=== PATIENT | female | born 1975 | race Caucasian/White ===

== ENCOUNTER → 2023-09-02 06:31 | Day surgery (SDC) | payer OTHER, SELFPAY | LOC: GI 06:31 | PROVIDERS: ATTENDING PHYSICIAN Internal Medicine Gastroenterology | DX: Z12.11 Encounter for screening for malignant neoplasm of colon (principal); K62.1 Rectal polyp | CPT/HCPCS: 45385; 45380; 88305 ==

== ENCOUNTER → 2024-01-03 07:57 | Outpatient (REF) | payer OTHER, SELFPAY | LOC: WDC 07:57 | PROVIDERS: ATTENDING PHYSICIAN Nurse Practitioner Family; FAMILY PHYSICIAN Physician Assistant Medical | DX: Z12.31 Encounter for screening mammogram for malignant neoplasm of breast (principal) | CPT/HCPCS: 77063; 77067 ==

== ENCOUNTER 2024-10-08 13:46 | Inpatient (IN) | payer OTHER, SELFPAY ==
[2024-10-08] VITALS (9 sets, daily range): BP systolic 112–128; BP diastolic 69–77; BMI 32.5; BMI 32.9
[2024-10-08 02:05] LABS: HCG, Serum Qualitative Screen Negative
[2024-10-08 02:06] LABS: Hematocrit 37.5 % (37.0-47.0); Hemoglobin 13.2 g/dL (12.0-16.0); Mean Corp Hgb Conc. 35.2 g/dL (33.0-37.0); Mean Corpuscular Volume 89.5 fL (81.0-99.0); Nucleated Red Blood Cells % 0 %; Platelet Count 97 10^3/uL (130-400); Red Cell Dist. Width 11.9 % (11.5-14.5)
[2024-10-08 02:08] LABS: ALT (SGPT) 40 U/L (0-35); AST (SGOT) 27 U/L (14-36); Albumin 4.5 g/dl (3.5-5.0); Alkaline Phosphatase 43 U/L (38-126); Blood Urea Nitrogen 12 mg/dl (7-17); COVID-19 Antigen Negative (Negative); Calcium 9.3 mg/dl (8.4-10.2); Carbon Dioxide 25 mmol/L (22-30); Chloride 106 mmol/L (98-107); Glucose 118 mg/dl (70-99); Potassium 4.1 mmol/L (3.5-5.1); Sodium 138 mmol/L (135-145); Total Protein 6.7 g/dl (6.3-8.2); eGFR > 60.00
[2024-10-08 02:20] LABS: Troponin I < 0.012 ng/ml
--- NOTE | 2024-10-08 06:18 | ED.GENMED ---
History of Present Illness
General
Chief Complaint: Breathing Problem
Source: patient and spouse
Exam Limitations: none
Time Seen by Provider: 10/08/24 06:03
Nursing documentation reviewed up to this point in time: agreed with
History of Present Illness
History of Present Illness:
Note:
CHIEF COMPLAINT(S)
Persistent cough and difficulty breathing upon deep inhalation since Tuesday.
HISTORY OF PRESENT ILLNESS
The patient is a 48-year-old female who began experiencing symptoms on with unspecified discomfort. She was evaluated at [facility] emergency department and received intravenous fluids. Following discharge on Tuesday, she developed a
cough each time she took a deep breath, which persisted since Tuesday. The patient denies any prior cough at the time of her initial presentation.
The patient has a known history of Idiopathic Thrombocytopenic Purpura (ITP), for which she receives Romiplostim (Nplate) injections. She mentioned that respiratory issues can sometimes be a side effect of this medication.
During her visit to [place], a CT scan and ultrasound were performed, and she was informed that the scans were essentially benign. Although her white blood cell count was reportedly elevated, she was instructed to follow up with gastroenterology.
Her chest X-ray was normal, showing no signs of pneumonia.
PAST MEDICAL AND SURGICAL HISTORY
History of Idiopathic Thrombocytopenic Purpura (ITP).
EXTERNAL RECORDS REVIEWED
The patient mentioned a recent visit to [place] emergency department where she had imaging studies and lab work performed. CT scan, ultrasound, and chest X-ray were mentioned, with emergency department staff reporting largely benign findings.
CHRONIC MEDICAL CONDITIONS SIGNIFICANTLY AFFECTING CARE
Idiopathic Thrombocytopenic Purpura (ITP).
SOCIAL HISTORY
The patient admits to smoking but did not specify the type or quantity.
REVIEW OF SYSTEMS
- Respiratory: Persistent cough with deep breaths since Tuesday.
- Hematology: History of Idiopathic Thrombocytopenic Purpura (ITP).
PHYSICAL EXAM
General: Alert, no acute distress.
Skin: Warm, dry.
Head: Normocephalic, atraumatic.
Neck: Supple, trachea midline.
Eye Ears, Nose, Mouth, and Throat: Oral mucosa moist.
Cardiovascular: Normal peripheral perfusion, no edema.
Respiratory: Respirations are non-labored.
Gastrointestinal: Abdomen nondistended.
Back: Normal range of motion, normal alignment.
Musculoskeletal: Normal range of motion, normal strength.
Neurological: Alert and oriented to person, place, time, and situation, no focal neurological deficit observed.
Psychiatric: Cooperative, appropriate mood and affect.
PLAN
The plan includes reviewing an additional ultrasound to assess any changes in the gallbladder. A COVID-19 test will also be reviewed. Close attention to the ultrasound results from [place] to ensure no abnormalities were missed.
DIFFERENTIAL DIAGNOSIS
The Differential Diagnosis includes, in no particular order and is not limited to:
1. Respiratory infection (viral or bacterial)
2. Possible medication side effects (e.g., Nplate causing respiratory symptoms)
3. COVID-19
4. Asthma or reactive airway disease
5. Chronic obstructive pulmonary disease (COPD)
6. Pulmonary embolism
7. Gastroesophageal reflux disease (GERD) causing cough
8. Bronchitis
9. Heart failure with pulmonary congestion
10. Pneumonia (although initial X-ray was reported as clear)
CARE-UPDATE
10/08/24 - 10:26
Patient shows mild hypoxia and persistent coughing, leading to admission recommendation. Albuterol nebulizers administered alongside Dexamethasone. No pneumonia detected on x-ray, and ultrasound reveals no evidence of cholecystitis. Plan to discuss
admission with hospitalists due to the patients ongoing symptoms.
Disposition:
SUMMARY OF ENCOUNTER
A 48-year-old female presented with a persistent cough and difficulty breathing upon deep inhalation since Tuesday. The patient has a history of Idiopathic Thrombocytopenic Purpura (ITP) and is on romiplostim injections, which may cause respiratory
symptoms. Initial assessments, including chest X-ray, CT scan, and ultrasound, showed benign findings, but her white blood cell count was elevated. In the emergency department, mild hypoxia was noted, and the patient was administered albuterol
nebulizers and dexamethasone. The cough persisted, and no signs of pneumonia were detected. Due to persistent symptoms, a recommendation for hospital admission was made.
DISPOSITION
Admit.
ASSESSMENT
The patient presented with symptoms suggestive of bronchitis and mild hypoxia. The abdominal pain remains unexplained but does not appear to be related to cholecystitis based on the ultrasound findings.
EMERGENCY TREATMENTS ADMINISTERED
Albuterol nebulizers and dexamethasone were administered to manage respiratory symptoms and inflammation.
MANAGEMENT OF THE PATIENTS CARE WAS DISCUSSED WITH
Hospitalists were engaged to discuss the admission of the patient due to ongoing symptoms.
PLAN
The plan includes admission for further evaluation and management of persistent cough and mild hypoxia. Continued observation and possibly other supportive treatments are warranted.
INDEPENDENT REVIEW OF LABS AND INTERPRETATION OF TESTS
- My independent review of the chest X-ray was that it shows no signs of pneumonia.
- My independent review of the ultrasound reveals no evidence of cholecystitis.
- My independent review of the laboratory tests indicates elevated white blood cell count suggestive of an infection or inflammatory process.
MEDICATION RECONCILIATION
Albuterol nebulizers and dexamethasone were administered during the visit. No new prescriptions were indicated upon admission.
MEDICAL DECISION MAKING
- Complexity of Data Reviewed: Chronic conditions affecting care include Idiopathic Thrombocytopenic Purpura (ITP). Differential diagnosis considered included respiratory infection, possible medication side effects, COVID-19, asthma, COPD, pulmonary
embolism, GERD, bronchitis, heart failure with pulmonary congestion, and pneumonia.
- Data:
- Category 1: Non-emergency department records reviewed from [place] including CT scan, ultrasound, and lab work.
- Category 3: Discussion of management with hospitalists regarding the patients ongoing symptoms and the recommendation for admission.
- Risk: Elevated due to prescription drug management and the decision for hospitalization due to persistent respiratory symptoms and mild hypoxia.
DIAGNOSIS
- Bronchitis (ICD-10: J20.9)
- Hypoxia (ICD-10: R09.02)
Past History
Past History
ED Past Medical History: Other (ITP, endometriosis)
ED Past Surgical History: Gynecological
Social History
Tobacco: Non-smoker
Alcohol: Occasional
Drug: None
Personal:
Living: with family
Employment: Employed
Phy Exam
Physical Exam
Physical Exam:
.
Scores
Heart Failure Risk
Heart Failure Risk Score: Not Applicable
Course
Orders/Labs/Results
Orders:
Orders
10/08/24 01:39
Electrocardiogram (*1) Urgent
Reason for Study: Shortness of Breath
EKG- Treatment ONCE
Test Result ONCE
10/08/24 01:47
COVID-19 Antigen Urgent
Source: Nasal Swab
Complete Blood Count/With Diff Urgent
Comprehensive Metabolic Panel Urgent
HCG, Serum Qualitative Screen Urgent
Troponin I Urgent
10/08/24 02:19
Chest [CR Chest - 2 Views ] Urgent
Comment:
Reason For Exam: cough
10/08/24 06:14
Ipratropium/Albuterol Sulfate [Duoneb] 3 ml INH R NOW STA
US Abdomen Complete/Upper Urgent
Comment:
Reason For Exam: RUQ pain
10/08/24 08:48
Dexamethasone Sod Phosphate [Decadron] 10 mg IV NOW STA
Ipratropium/Albuterol Sulfate [Duoneb] 3 ml INH R NOW STA
Abnormal Lab Results
10/08/24
01:47
WBC 14.1 H 10^3/uL
(4.8-10.8)
RBC 4.19 L 10^6/uL
(4.20-5.40)
MCH 31.5 H pg
(27.0-31.0)
Plt Count 97 L 10^3/uL
(130-400)
MPV 11.8 H fL
(7.4-10.4)
Abs Immat Gran (auto) 0.1 H 10^3/uL
(0-0.05)
Absolute Neuts (auto) 10.8 H 10^3/uL
(1.4-6.5)
Absolute Monos (auto) 1.2 H 10^3/uL
(0.1-0.6)
Immature Gran % 0.6 H %
(0-0.5)
Neutrophils % 76.4 H %
(42.2-75.2)
Lymphocytes % 11.8 L %
(20.5-51.1)
Glucose 118 H mg/dl
(70-99)
Total Bilirubin 1.4 H mg/dl
(0.2-1.3)
ALT 40 H U/L
(0-35)
10/08/24 01:47
10/08/24 01:47
Vital Signs
Initial and Last Documented VS:
Initial Vital Signs
Temp Pulse Resp BP Pulse Ox
99.0 F 106 18 125/72 90
10/08/24 01:43 10/08/24 01:43 10/08/24 01:43 10/08/24 01:43 10/08/24 01:43
Last Documented Vital Signs
Temp Pulse Resp BP Pulse Ox
98.4 F 106 18 120/74 96
10/08/24 09:00 10/08/24 01:43 10/08/24 01:43 10/08/24 09:00 10/08/24 09:15
*Pulse Oximetry
SaO2: 90
Oxygen Mode of Delivery: Room air
Patient hypoxic: yes
*Critical Care Note
Total Time (30-74mins, 75-104mins- exclusive of procedures): Not Applicable
ED Attending Note
-
Portions of this chart may have been created with voice recognition software.� Occasional wrong word or��sound alike� substitutions may have occurred due to the inherent limitations of voice recognition software.
Discharge Plan
Departure
Patient Disposition: Admit
Date of Disposition: 10/08/24
Time of Disposition: 10:23
Admit to: Telemetry
Presentation/result/management discussed w/ accepting MD/DO: Hospitalist
Patient with high blood pressure during this ER visit?: No
Condition: Fair
Discharge Problem:
Hypoxia, Acute bronchitis
Prescriptions:
No Action
Aczone 5% Topical
1 unit topical PRN PRN (Reason: acne)
lovastatin [Mevacor] 10 MG tablet
10 mg PO DAILY
Clindamycin
300 mg PO DAILY
Clindamycin Topical Lotion
1 unit topical PRN PRN (Reason: acne)
ibuprofen 600 MG tablet
600 mg PO Q4HPRN PRN (Reason: mild pain) Qty: 30 0RF
ondansetron 4 MG tablet,disintegrating
4 mg PO TIDPRN PRN (Reason: Nausea) Qty: 15 0RF
triamcinolone acetonide 1 APPLIC cream
1 applic S BID Qty: 1 0RF
Referrals:
Paulina Montelongo PA [Family Provider, Family Practice]
Interventions
Interventions:
*Risk Screen - Suicide Last Done: 10/08/24 01:43
*General Assessment Last Done: 10/08/24 01:43
*ED COVID-19 Vaccine History Last Done: 10/08/24 04:00
ED- Cardiac Assessment Last Done: 10/08/24 04:00
ED- Pulmonary Assessment Last Done: 10/08/24 08:13
Discharge Date and Time
Print Language: LATVIAN
[2024-10-08] MEDS: DUONEB 3 ML INH ×3 (07:49→15:31)
[2024-10-08] MEDS: DECADRON 10 MG IV (09:25)
--- NOTE | 2024-10-08 12:48 | HPS.HSE ---
Family Physician
-
Family Physician: Paulina Montelongo
Chief Complaint
-
Shortness of breath and cough
History of Present Illness
Patient is a 48-year-old female with past medical history of sks-jnejzwg-svlyubepf diabetes mellitus, reflux, ITP, hyperlipidemia, tobacco use came to ER with ongoing shortness of breath and cough. Patient symptom initially started on when
patient was having some right upper quadrant discomfort some questionable nausea although no vomiting. Patient initially presented to [place] [facility] where the workup was essentially normal. Patient was discharged home and after discharge patient
started having new onset of cough and difficulty taking deep breath. Producing some white phlegm. Patient is afebrile. Noticed wheezing on and off. In light of persistent symptoms came to ER. Patient denies of any chest
pains/palpitation/abdominal pain/nausea/vomiting.
Medical History
Past Medical History
Past Medical History: Reports Other
Additional Past Medical History:
wqj-thphxzb-cnpyrxabe diabetes mellitus, reflux, ITP, hyperlipidemia, tobacco use
Past Surgical History: Reports Other
Social History
Tobacco: Smoker
Alcohol: None
Drug: None
Family History
Family History: Not pertinent
Allergies / Home Medications
Allergies reflects when Allergies were last updated in [employer].
Home Medications with original date entered in [employer]
Allergy/Medication List:
Allergies
Allergy/AdvReac Type Severity Reaction Status Date / Time
Cephalosporins Allergy Unknown Verified 08/22/18 20:08
erythromycin base Allergy swelling Verified 08/22/18 20:08
of
throat;hives
furosemide (From Lasix) Allergy Vomiting Verified 08/22/18 20:08
hydrochlorothiazide Allergy Vomiting Verified 08/22/18 20:08
penicillin G Allergy Swelling Verified 08/22/18 20:08
Penicillins Allergy swelling Verified 08/22/18 20:08
of
throat;hives
diuretics Allergy Vomiting Uncoded 08/22/18 20:08
Home Medications
clindamycin phosphate 1 % lotion 1 applic topical DAILY face 10/08/24
dicyclomine 10 mg capsule 10 mg PO TIDPRN PRN spasms 10/08/24
lorazepam 0.5 mg tablet 0.5 mg PO BIDPRN PRN anixety 10/08/24
metformin 750 mg tablet,extended release 24 hr 750 mg PO BID 10/08/24
pantoprazole 20 mg tablet,delayed release (Protonix) 20 mg PO DAILY 10/08/24
romiplostim 125 mcg subcutaneous solution (Nplate) 125 mcg SC TU 10/08/24
rosuvastatin 20 mg tablet (Crestor) 20 mg PO QPM 10/08/24
Review of Systems
-
A 12 point ROS was completed and negative except as noted: Yes
Physical Exam
Vital Signs
Vital Signs
Temp Pulse Resp BP Pulse Ox
98.5 F 85 20 117/77 96
10/08/24 11:32 10/08/24 11:32 10/08/24 11:32 10/08/24 11:32 10/08/24 11:32
Physical Exam
General: No Apparent Distress
HEENT: Atraumatic and Oxygen (NC)
Respiratory: Wheezes
Cardiac: S1/S2 and Regular Rhythm; No Murmur or Rub
GI: Soft, Non Tender, Non Distended and Normal Bowel Sounds; No Organomegaly
Rectal: Deferred by Provider
Musculoskeletal: No Clubbing, No Cyanosis and No Edema
Skin: No Rash
Neuro: Nonfocal/grossly intact
Laboratory Results
-
10/08/24 01:47
10/08/24 01:47
Laboratory Results
Total Bilirubin 1.4 mg/dl (0.2-1.3) H 10/08/24 01:47
AST 27 U/L (14-36) 10/08/24 01:47
ALT 40 U/L (0-35) H 10/08/24 01:47
Alkaline Phosphatase 43 U/L (38-126) 10/08/24 01:47
Troponin I < 0.012 ng/ml 10/08/24 01:47
Impression/Plan
-
1. Acute bronchitis
Possible COPD flareup
Hypoxic respiratory insufficiency
- Patient is active tobacco user came in with new onset of shortness of breath wheezing cough
- Found to be hypoxic in ER required oxygen through nasal cannula
- Chest x-ray revealed clear
- Patient wheezing on exam and suspecting patient may have component of COPD
- Patient got IV Decadron 10 mg in the ER, maintained on 4 mg every 12
- Maintained on DuoNeb therapy
- Maintain on doxycycline as part of treatment of bronchitis/COPD flareup
- Wean off oxygen as possible
- Will have pulmonology evaluate patient as patient have not seen any pulmonology in the past
2. ITP
- Patient takes injection of Nplate every Tuesday, if can bring supply, will be able to provide a dose
3. NIDDM
- Maintained on metformin, insulin sliding scale ordered
4. GERD
- Continue home dose of Protonix
5. Generalized anxiety disorder
- Continue on Ativan as needed
DVT PPX - lovenox
Full code
Total time spent : 78 mins
I personally saw and examined the patient.
I have reviewed all diagnostic interpretations and treatment plans as written.
Time includes patient management by me, time spent at the patients bedside, time to review lab and imaging results, discussing patient care, documentation in the medical record, and time spent with the family or caregiver and discussing care plan
with RN/Consultants.
--- NOTE | 2024-10-08 14:39 | EDRN ---
Oxygen removed for ambulation. Pulse ox was 94-95% on room air. While resting, pulse ox on R/A noted to be 92%. Oxygen 2l n/c applied and Dr. Araceli Vasques notified.
[2024-10-08] MEDS: VIBRAMYCIN 100 MG PO ×2 (15:30→20:34)
[2024-10-08] MEDS: TYLENOL 650 MG PO ×2 (15:30→21:56)
[2024-10-08 19:49] LABS: Glucose - Point of Care 270 mg/dl (70-99)
[2024-10-08] MEDS: LOVENOX 40 MG SC (20:00)
[2024-10-08] MEDS: DECADRON 4 MG IV (20:34)
[2024-10-08 21:32] LABS: Glucose - Point of Care 257 mg/dl (70-99)
[2024-10-08] MEDS: NOVOLOG FLEXPEN-LOW RESISTANCE SC (21:58)
[2024-10-08] MEDS: GLUCOPHAGE XR EXTENDED RELEASE 750 MG PO (22:21)
[2024-10-08] MEDS: CRESTOR 20 MG PO (22:21)
--- NOTE | 2024-10-09 01:26 | PTCARENOTE ---
Pt received from ER [facility] able to make her needs known. Pt oriented to room & call weems in reach.Plan of care continued on pt.
[2024-10-09] MEDS: DUONEB 3 ML INH ×3 (06:05→19:33)
[2024-10-09 07:43] LABS: Glucose - Point of Care 167 mg/dl (70-99)
[2024-10-09] MEDS: DECADRON 4 MG IV ×2 (07:51→19:29)
[2024-10-09 07:52] VITALS: BP 117/76
[2024-10-09] MEDS: GLUCOPHAGE XR EXTENDED RELEASE 750 MG PO ×2 (07:52→19:29)
[2024-10-09] MEDS: PROTONIX 20 MG PO (07:53)
[2024-10-09] MEDS: VIBRAMYCIN 100 MG PO ×2 (07:53→19:29)
[2024-10-09] MEDS: TYLENOL 650 MG PO ×3 (08:03→20:15)
[2024-10-09 08:08] LABS: Hematocrit 36.8 % (37.0-47.0); Hemoglobin 13.1 g/dL (12.0-16.0); Mean Corp Hgb Conc. 35.6 g/dL (33.0-37.0); Mean Corpuscular Volume 88.7 fL (81.0-99.0); Platelet Count 93 10^3/uL (130-400); Red Cell Dist. Width 11.8 % (11.5-14.5)
[2024-10-09] MEDS: NOVOLOG FLEXPEN-LOW RESISTANCE 1 UNITS SC ×2 (08:22→16:53)
[2024-10-09 08:33] LABS: Blood Urea Nitrogen 13 mg/dl (7-17); Calcium 9.3 mg/dl (8.4-10.2); Carbon Dioxide 22 mmol/L (22-30); Chloride 106 mmol/L (98-107); Estimated Creatinine Clearance 102 ml/min; Glucose 150 mg/dl (70-99); Sodium 137 mmol/L (135-145); eGFR > 60.00
[2024-10-09 08:42] LABS: Potassium 3.8 mmol/L (3.5-5.1)
[2024-10-09 09:00] LABS: Glycohemoglobin (HgbA1c) 5.7 % (4.0-5.6)
--- NOTE | 2024-10-09 10:40 | CON.PUL ---
Consultation
Consultation Request
Date/Time Consultation Requested: 10/09/2024-7:30 AM
Date/Time Consultation Performed: 10/09/2024-8 AM
Requesting Provider: Hospitalist
Performing Provider: Dr. Blair
Reason for Consultation: Shortness of breath
Medical History
-
Chief Complaint: Shortness of breath
History of Present Illness:
48-year-old smoking female with a history of '' asthma' on intermittent albuterol, diabetes, ITP, reflux, and obesity recently seen with right upper quadrant discomfort at [place] emergency room with negative workup and presented with new onset
cough, shortness of breath and wheezing-pulmonary consulted for suspected COPD exacerbation 10/09/2024.. The patient states that she's never been told she has COPD, has ongoing smoking up to 8 cigarettes daily and is followed by hematology for ITP.
Reportedly, on immunosuppressants. She recently developed increasing shortness of breath, wheezing, especially on the 'right side' with some nonproductive cough and dyspnea on exertion. Nebulizers are helping her. She offers no complaints
currently of chest pain, pleurisy, hemoptysis, abdominal pain, but she does have intermittent right upper quadrant pain. She does not complain of focal weakness or lower extremity edema.
Past Medical History
Past Medical History: None (Asthma. Diabetes. Reflux. ITP. Hyperlipidemia. Cigarette smoker. Obesity-BMI 33)
Social History
Tobacco: Smoker (30-xxbm-dvfy smoker-continues 5 to 8 cigarettes daily)
Alcohol: None
Drug: None
Living: With Family
Occupational Exposures: No known asbestos exposure
Environmental Exposures: No known tuberculosis exposure
Family History
Family History: Reviewed & Not Pertinent
Allergies / Home Medications
Allergies
Allergy/AdvReac Type Severity Reaction Status Date / Time
Cephalosporins Allergy Unknown Verified 10/08/24 15:22
erythromycin base Allergy swelling Verified 10/08/24 15:22
of
throat;hives
furosemide (From Lasix) Allergy Vomiting Verified 10/08/24 15:22
hydrochlorothiazide Allergy Vomiting Verified 10/08/24 15:22
penicillin G Allergy Swelling Verified 10/08/24 15:22
Penicillins Allergy swelling Verified 10/08/24 15:22
of
throat;hives
diuretics Allergy Vomiting Uncoded 10/08/24 15:22
Home Medications
�Medication �Instructions �Recorded �Confirmed �Last Taken �Type
clindamycin phosphate 1 % lotion 1 applic topical DAILY face 10/08/24 10/08/24 Unknown History
dicyclomine 10 mg capsule 10 mg PO TIDPRN PRN spasms 10/08/24 10/08/24 Unknown History
lorazepam 0.5 mg tablet 0.5 mg PO BIDPRN PRN anixety 10/08/24 10/08/24 Unknown History
metformin 750 mg tablet,extended 750 mg PO BID Diabetes 10/08/24 10/08/24 10/07/24 History
release 24 hr
pantoprazole 20 mg tablet,delayed 20 mg PO DAILY Gastrointestinal 10/08/24 10/08/24 10/07/24 History
release (Protonix) Issue
romiplostim 125 mcg subcutaneous 125 mcg SC TU ITP 10/08/24 10/08/24 Unknown History
solution (Nplate)
rosuvastatin 20 mg tablet (Crestor) 20 mg PO QPM High Cholesterol 10/08/24 10/08/24 10/07/24 History
Review of Systems
-
Unable to Obtain full review of systems at this time due to: Other ( per HPI)
Vitals / Labs / Diagnostic Testing
Vital Signs
Temp Pulse Resp BP Pulse Ox
97.6 F 87 20 117/76 95
10/09/24 07:52 10/09/24 07:52 10/09/24 07:52 10/09/24 07:52 10/09/24 07:52
Lab Data
10/09/24 07:18
10/09/24 07:18
Diagnostic Testing:
Physical Exam
-
Exam:
well-nourished and well-developed in no apparent distress
HEENT-atraumatic, normocephalic
Neck-supple, no JVD, no bruit
Heart-regular rate and rhythm-no murmurs, rubs or gallops
Chest with diminished breath sounds, prolonged expiratory time, expiratory wheezes
Abdomen-soft, nontender, nondistended, no hepatosplenomegaly
Extremities-no cyanosis, clubbing, edema and good peripheral pulses
Integument-intact, no rashes, lesions or ecchymosis
Neurology-alert and oriented, nonfocal motor and sensory exam
Assessment
-
48-year-old smoking female with a history of '' asthma' on intermittent albuterol, diabetes, ITP, reflux, and obesity recently seen with right upper quadrant discomfort at [place] emergency room with negative workup and presented with new onset
cough, shortness of breath and wheezing-pulmonary consulted for suspected COPD exacerbation 10/09/2024.
COPD/asthma overlap suspected with acute exacerbation
Bronchitis.
Intermittent right upper quadrant abdominal pain-for outpatient HIDA with [facility]
Leukocytosis.
Chronic thrombocytopenia.
Hyperglycemia-A1c 5.7%
DANIELA suspected
Conditions present prior to admission:
Asthma.
Diabetes.
Reflux.
ITP.
Hyperlipidemia.
Cigarette smoker.
Obesity.
Plan
Respiratory decompensation, likely related to suspected underlying COPD/asthma overlap with acute exacerbation.
Supplemental oxygen as needed.
Assess discharge. Supplemental oxygen needs prior to discharge.
Decadron with conversion to prednisone with slow taper.
Duonebs.
Pulmicort nebulizers.
Mucolytic's
Mucus clearing devices..
Check bedside spirometry
Check cultures.
Empiric antibiotics-finish a finite course.
Follow leukocytosis
Surgical evaluation of intermittent right upper quadrant pain-patient to be seen as an outpatient HIDA scan with [facility].
Patient follows Dr. Niño from hematology for her chronic ITP.
Monitor blood sugar.
Insulin supplementation as needed
DVT prophylaxis-on Lovenox.
GI prophylaxis-on pantoprazole.
Nutrition
Early mobilization.
Outpatient pulmonary/sleep disorders [id number]- Ongoing smoking cessation counseling, PFTs, inhaler recommendations, sleep study, and potentially yearly low-dose lung cancer screening CTs if she qualifies
Diagnostic data:
Chest x-ray 10/08/24-hypoaerated lungs without consolidation.
Abdominal ultrasound 10/08/24-moderate fatty liver, no acute intra-abdominal process identified
Data Reviewed
-
EKG: Report reviewed by me
Radiology: Image personally visualized and interpreted and Report reviewed by me
Medical Tests (Nuc Med, Echo etc): Report reviewed by me
Labs: Labs reviewed by me
Old Records: Reviewed
Total Time Spent with Patient (in minutes): 65
[2024-10-09 11:41] LABS: Glucose - Point of Care 143 mg/dl (70-99)
[2024-10-09] MEDS: NOVOLOG FLEXPEN-LOW RESISTANCE SC (11:42)
[2024-10-09] MEDS: ANESTHETIC LOZENGE 1 LOZENGE PO (11:58)
[2024-10-09] MEDS: NPLATE 125 MCG SC (12:01)
--- NOTE | 2024-10-09 12:03 | CM ---
Patient seen bedside, initial assessment completed. Patient is a 48-year-old female with past medical history of jku-kvoizuv-sxjadekla diabetes mellitus, reflux, ITP, hyperlipidemia, tobacco use came to ER with ongoing shortness of breath and cough.
Nebulizer PRN. On room air.
Patient resides w/ spouse and their 22 year old twin sons in a 2 story townhouse, 1 or 2 steps to enter from the outside. Patient is independent in all areas. No medical equipment. OP therapy years ago, nothing recently.
Address, point of contact and insurance verified
PCP: Paulina Montelongo
Pharmacy: [facility]. [facility] for mail orders
Plan: Home, no needs anticipated
--- NOTE | 2024-10-09 13:37 | CON.GS ---
Consultation
-
Date/Time Consultation Performed: 10/09/24
Requesting Provider: Layo
Performing Provider: Eveline
Reason for Consultation: RUQ pain
Medical History
-
Chief Complaint: RUQ pain
History of Present Illness:
48F with approx 12 month history of intermittent RUQ pain, noted to be severe, crampy, similar to labor pains, triggered by eating, worse with fatty foods, lasting about 4-5 hours and resolving on its own. She is currently admitted for bronchitis
and developed recurrent pain while in the hospital prompting GS consultation. Denies f/c/n/v, dneies changes to stool/urine.
Past Medical History
Past Medical History: Other (vdp-cvqabku-inyngqswa diabetes mellitus, reflux, ITP, hyperlipidemia, tobacco use)
Past Surgical History: Reviewed & Noncontributory
Social History
Tobacco: Smoker
Alcohol: None
Drug: None
Employment: Employed
Family History
Family History: Reviewed & Noncontributory
Allergies / Home Medications
Allergy/AdvReac Type Severity Reaction Status Date / Time
Cephalosporins Allergy Unknown Verified 10/08/24 15:22
erythromycin base Allergy swelling Verified 10/08/24 15:22
of
throat;hives
furosemide (From Lasix) Allergy Vomiting Verified 10/08/24 15:22
hydrochlorothiazide Allergy Vomiting Verified 10/08/24 15:22
penicillin G Allergy Swelling Verified 10/08/24 15:22
Penicillins Allergy swelling Verified 10/08/24 15:22
of
throat;hives
diuretics Allergy Vomiting Uncoded 10/08/24 15:22
�Medication �Instructions �Recorded �Confirmed �Type
clindamycin phosphate 1 % lotion 1 applic topical DAILY face 10/08/24 10/08/24 History
dicyclomine 10 mg capsule 10 mg PO TIDPRN PRN spasms 10/08/24 10/08/24 History
lorazepam 0.5 mg tablet 0.5 mg PO BIDPRN PRN anixety 10/08/24 10/08/24 History
metformin 750 mg tablet,extended 750 mg PO BID Diabetes 10/08/24 10/08/24 History
release 24 hr
pantoprazole 20 mg tablet,delayed 20 mg PO DAILY Gastrointestinal 10/08/24 10/08/24 History
release (Protonix) Issue
romiplostim 125 mcg subcutaneous 125 mcg SC TU ITP 10/08/24 10/08/24 History
solution (Nplate)
rosuvastatin 20 mg tablet (Crestor) 20 mg PO QPM High Cholesterol 10/08/24 10/08/24 History
Review of Systems
-
A 10 point review of systems was completed, and was negative except as per HPI.
Physical Exam
Vital Signs
Temp Pulse Resp BP Pulse Ox
97.6 F 87 20 117/76 95
10/09/24 07:52 10/09/24 07:52 10/09/24 07:52 10/09/24 07:52 10/09/24 07:52
10/08/24 10/09/24 10/10/24
06:59 06:59 06:59
Actual Weight 76.402 kg
Body Mass Index (BMI) 32.9
Lab Results
10/09/24 07:18
10/09/24 07:18
WBC 15.7 10^3/uL (4.8-10.8) H 10/09/24 07:18
Hgb 13.1 g/dL (12.0-16.0) 10/09/24 07:18
Hct 36.8 % (37.0-47.0) L 10/09/24 07:18
Plt Count 93 10^3/uL (130-400) L 10/09/24 07:18
Abs Immat Gran (auto) 0.1 10^3/uL (0-0.05) H 10/08/24 01:47
Neutrophils % 76.4 % (42.2-75.2) H 10/08/24 01:47
Physical Exam
General: Well Developed, Well Nourished and No Apparent Distress
HEENT: Normocephalic and Anicteric
GI: Soft, Non Tender, Non Distended and Obese
Skin: Warm and Dry
Neuro: AO x 3
Data Reviewed
-
Ultrasound: Image Personally Visualized and interpreted, Report Reviewed by me, Discussed with Physician and Discussed with Patient
Labs: Labs Reviewed by me, Discussed with Physician and Discussed with Patient
Assessment / Plan
-
48F with possible biliary dyskinesia in setting of bronchitis
AFVSS, presently without abd pain
Leukocytosis noted, likely respiratory origin
T bili 1.4 (possible from ITP)
ALT mildly elevated (possibly from fatty liver)
US without stones, without signs of ACC, CBD 3mm
Plan:
For outpt HIDA with CCK upon DC
My office will arrange.
Pls call with ?s
[2024-10-09 15:25] VITALS: BP 121/69
--- NOTE | 2024-10-09 15:34 | W.PN.HOSP.TC ---
Today's Communication/Plan
-
GS eval noted
maintain on steroids/neb
continue abx
f/u PFT report
Assessment / Plan
Assessment / Plan
1. Acute bronchitis
COPD flareup
Hypoxic respiratory insufficiency
- Patient is active tobacco user came in with new onset of shortness of breath wheezing cough
- Found to be hypoxic in ER required oxygen through nasal cannula
- Chest x-ray revealed clear
- Patient wheezing on exam and suspecting patient may have component of COPD
- Patient got IV Decadron 10 mg in the ER, maintained on 4 mg every 12
- Maintained on DuoNeb therapy
- Maintain on doxycycline as part of treatment of bronchitis/COPD flareup
- Wean off oxygen as possible
- Pulmonology evaluated. PFT done, FEV1/FVC 74%, FEV1 60%
2. ITP
- Patient takes injection of Nplate every Tuesday, if can bring supply, will be able to provide a dose
3. NIDDM
- Maintained on metformin, insulin sliding scale ordered
4. GERD
- Continue home dose of Protonix
5. Generalized anxiety disorder
- Continue on Ativan as needed
6. Gallbladder dyskinesia
- Patient is having right upper quadrant abdominal pain
- Pain in right upper quadrant ultrasound did not show any gallbladder abnormality some fatty steatosis
- General Surgery evaluated and recommended outpatient HIDA scan
DVT PPX - lovenox
Full code
Total time spent ; 53 mins
Anticipated Discharge: 24 - 48 hours
Subjective/Interval History
-
Date of Service: October 09, 2024
Continues to have cough/shortness of breath
continues remain on oxygen through nasal cannula
Objective Data
-
Labs:
Laboratory Results
10/09/24
07:18
WBC 15.7 H
Hgb 13.1
Hct 36.8 L
Plt Count 93 L
Sodium 137
Potassium 3.8
Chloride 106
Carbon Dioxide 22
BUN 13
Creatinine 0.6
Glucose 150 H
Calcium 9.3
Vital Signs:
Vital Signs
Temp Pulse Resp BP Pulse Ox
97.6 F 84 16 117/76 93
10/09/24 07:52 10/09/24 14:15 10/09/24 14:15 10/09/24 07:52 10/09/24 14:15
Review of Systems
-
Respiratory: Reports Cough and Trouble Breathing
Cardiac: Reports No Symptoms
Abdomen/GI: Reports No Symptoms
Physical Exam
-
General: No Apparent Distress and Comfortable
HEENT: Negative Oxygen
Respiratory: Wheezes and Rhonchi
Cardiac: Regular Rhythm and S1/S2; Negative Murmur or Rub
GI: Soft and Nontender
Musculoskeletal: No Edema
Neuro: Awake, Alert, Oriented, No Motor Deficits and Nonfocal/Grossly Intact
Psych: Calm
[2024-10-09 16:19] LABS: Glucose - Point of Care 165 mg/dl (70-99)
[2024-10-09 16:34] VITALS: BP 121/69
[2024-10-09] MEDS: LOVENOX 40 MG SC (16:53)
[2024-10-09] MEDS: CRESTOR 20 MG PO (16:59)
[2024-10-09] MEDS: PULMICORT 0.5 MG INH (19:31)
[2024-10-09 20:40] VITALS: BP 146/94
--- NOTE | 2024-10-09 20:52 | W.PN.UPDATE ---
Update Note
Progress Note Update
Evaluated patient for headache and tremors after receiving medications tonight. Patient received duoneb and Budesonide breathing treatments and Dexamethasone at the same time. She stated she has had headaches before when getting these medications
but tonight it is worse and is the first time she is receiving these medications together. Patient does admit to hx of migraines. Patient states back of head hurts, denies any visual disturbances, n/v, sob, arm/leg weakness.
Offered ice pack and ordered Fiorocet x 1 dose. RN to update if symptoms do not resolve.
[2024-10-09] MEDS: FIORICET 1 TAB PO (20:58)
[2024-10-09] MEDS: MELATONIN 5 MG PO (22:02)
[2024-10-09 23:02] VITALS: BP 112/64
--- NOTE | 2024-10-10 02:48 | DOWNTIME ---
There was a [employer] Executive Director Of Nursing Downtime on 10/10/2024 from 0100 to 10/10/2024 at 0235. Downtime documentation of patient's care, including medication administrations, has been reconciled in the electronic record per guidelines. Refer to the
patient's paper chart under the miscellaneous tab to see printed paper medication records and downtime forms.
[2024-10-10] MEDS: TYLENOL 650 MG PO ×2 (04:45→10:27)
[2024-10-10 07:24] LABS: Glucose - Point of Care 121 mg/dl (70-99)
[2024-10-10 07:30] VITALS: BP 114/68
[2024-10-10 07:33] LABS: Hematocrit 33.5 % (37.0-47.0); Hemoglobin 11.8 g/dL (12.0-16.0); Mean Corp Hgb Conc. 35.2 g/dL (33.0-37.0); Mean Corpuscular Volume 90.5 fL (81.0-99.0); Platelet Count 140 10^3/uL (130-400); Red Cell Dist. Width 11.9 % (11.5-14.5)
[2024-10-10] MEDS: DUONEB 3 ML INH (08:02)
[2024-10-10] MEDS: PULMICORT 0.5 MG INH (08:02)
[2024-10-10 08:07] LABS: Blood Urea Nitrogen 13 mg/dl (7-17); Calcium 8.8 mg/dl (8.4-10.2); Carbon Dioxide 24 mmol/L (22-30); Chloride 104 mmol/L (98-107); Estimated Creatinine Clearance 102 ml/min; Glucose 118 mg/dl (70-99); Potassium 4.1 mmol/L (3.5-5.1); Sodium 136 mmol/L (135-145); eGFR > 60.00
[2024-10-10] MEDS: DECADRON 4 MG IV (10:06)
[2024-10-10] MEDS: GLUCOPHAGE XR EXTENDED RELEASE 750 MG PO (10:06)
[2024-10-10] MEDS: VIBRAMYCIN 100 MG PO (10:06)
[2024-10-10] MEDS: PROTONIX 20 MG PO (10:06)
[2024-10-10] MEDS: NOVOLOG FLEXPEN-LOW RESISTANCE SC ×2 (10:07→12:05)
--- NOTE | 2024-10-10 10:26 | W.PN.PUL.V3 ---
Today's Communication / Plan
-
.
Convert steroids to oral with slow taper.
Finite course of antibiotics.
Nebulizers-convert to inhalers.
Outpatient pulmonary follow-up
Assessment
-
48-year-old smoking female with a history of '' asthma' on intermittent albuterol, diabetes, ITP, reflux, and obesity recently seen with right upper quadrant discomfort at [facility] emergency room with negative workup and presented with new onset
cough, shortness of breath and wheezing-pulmonary consulted for suspected COPD exacerbation 10/09/2024.
COPD/asthma overlap suspected with acute exacerbation
Bronchitis.
Intermittent right upper quadrant abdominal pain-for outpatient HIDA with CCK
Leukocytosis.
Chronic thrombocytopenia.
Hyperglycemia-A1c 5.7%
DANIELA suspected
Conditions present prior to admission:
Asthma.
Diabetes.
Reflux.
ITP.
Hyperlipidemia.
Cigarette smoker.
Obesity.
Plan
Respiratory decompensation, likely related to suspected underlying COPD/asthma overlap with acute exacerbation.
Supplemental oxygen as needed.
Assess discharge supplemental oxygen needs prior to discharge-Currently 98% on room air at rest.
Change Decadron to prednisone with slow taper
Duonebs.
Pulmicort nebulizers.
Mucolytic's
Mucus clearing devices..
Bedside spirometry 10/09/24-FEV1 1.29 L-52%, FVC 2.04 L-66%, 15% improvement postbronchodilator
.
Cultures reviewed.
MRSA screen negative.
Strep culture negative
Empiric antibiotics-finish a finite course.
Follow leukocytosis
Surgical evaluation of intermittent right upper quadrant pain-patient to be seen as an outpatient HIDA scan with CCK.
Patient follows Dr. Niño from hematology for her chronic ITP.
Monitor blood sugar.
Insulin supplementation as needed
DVT prophylaxis-on Lovenox.
GI prophylaxis-on pantoprazole.
Nutrition
Early mobilization.
Outpatient pulmonary/sleep disorders [id number]- Ongoing smoking cessation counseling, PFTs, inhaler recommendations, sleep study, and potentially yearly low-dose lung cancer screening CTs if she qualifies
Diagnostic data:
Chest x-ray 10/08/24-hypoaerated lungs without consolidation.
Abdominal ultrasound 10/08/24-moderate fatty liver, no acute intra-abdominal process identified
Subjective Data
-
Date of Service:
Date of Service: October 10, 2024
Chief Complaint: Pulmonary Follow Up and Dyspnea Follow Up
Subjective:
Feels better, less short of breath, had a headache after nebulizer and steroids yesterday-much improved, decreased wheezing, decreased dyspnea exertion, no abdominal pain
Review of Systems
General: Other ( per HPI)
Objective Data
Data Reviewed
Vital Signs / I&O:
Vital Signs
Temp Pulse Resp BP Pulse Ox
97.7 F 67 18 114/68 97
10/10/24 07:30 10/10/24 07:30 10/10/24 08:07 10/10/24 07:30 10/10/24 08:07
Intake and Output
10/09/24 10/10/24 10/11/24
06:59 06:59 06:59
Intake Total 1440 / 1440
Balance 1440 / 1440
SaO2: 97
Nasal Cannula flow liters per minute: 2
Physical Exam
General: Respiratory Distress (n) and Comfortable
HEENT: Normocephalic, Anicteric and Moist Mucous Membranes
Cardiovascular: Regular Rhythm
Respiratory: Clear ( diminished breath sounds and prolonged expiratory time), Wheeze ( expiratory), Rhonchi (n), Non-Labored Respirations, Accessory Resp Muscle Use (n) and Stridor (n)
GI: Soft, Non Distended and Non Tender
Neurology: Awake, Alert and No Motor Deficits
Skin: Warm, Good Color, Cyanosis (n) and Jaundice (n)
Labs/Micro/Reports
Lab Data
10/10/24 06:59
10/10/24 06:59
Microbiology
10/09/24 13:57 Throat/Pharynx Streptococcus Screen (TRES) - Preliminary
Culture in Progress
10/09/24 13:57 Throat/Pharynx Streptococcus Rapid Screen - Final
Rapid Strep Screen (Group A) Negative
[2024-10-10 12:01] LABS: Glucose - Point of Care 111 mg/dl (70-99)
--- NOTE | 2024-10-10 13:58 | W.PN.HOSP.TC ---
Today's Communication/Plan
-
d/c home
Assessment / Plan
Assessment / Plan
1. Acute bronchitis
COPD flareup
Acute Hypoxic respiratory insufficiency - resolved
- Patient is active tobacco user came in with new onset of shortness of breath wheezing cough
- Found to be hypoxic in ER required oxygen through nasal cannula
- Chest x-ray revealed clear
- Patient wheezing on exam and suspecting patient may have component of COPD
- Patient got IV Decadron 10 mg in the ER, maintained on 4 mg every 12
- Maintained on DuoNeb therapy
- Maintain on doxycycline as part of treatment of bronchitis/COPD flareup
- Pulmonology evaluated. PFT done, FEV1/FVC 74%, FEV1 60%
- Patient continues to have some coughing on deep inspiration. Medically stable for discharge today. Patient will be discharged on tapering course of oral steroids and albuterol therapy. Patient will need to follow-up with pulmonology in the
office
2. ITP
- Patient takes injection of Nplate every Tuesday, if can bring supply, will be able to provide a dose
3. NIDDM
- Maintained on metformin, insulin sliding scale ordered
4. GERD
- Continue home dose of Protonix
5. Generalized anxiety disorder
- Continue on Ativan as needed
6. Gallbladder dyskinesia
- Patient is having right upper quadrant abdominal pain
- Pain in right upper quadrant ultrasound did not show any gallbladder abnormality some fatty steatosis
- General Surgery evaluated and recommended outpatient HIDA scan
DVT PPX - lovenox
Full code
More than 30 minutes spent in discharge including
Final examination of the patient
Summarizing hospital stay
Instructions for continuing care to all relevant caregivers
Preparation of discharge records, prescriptions, and referral forms
Total time spent (in minutes): 38 mins
Anticipated Discharge: Today
Subjective/Interval History
-
Date of Service: October 10, 2024
Shortness of breath is improved
Continues to have some cough on deep inspiration
Did not voice any right upper quadrant abdominal pain/nausea/vomit
Objective Data
-
Labs:
Laboratory Results
10/10/24
06:59
WBC 16.0 H
Hgb 11.8 L
Hct 33.5 L
Plt Count 140 D
Sodium 136
Potassium 4.1
Chloride 104
Carbon Dioxide 24
BUN 13
Creatinine 0.6
Glucose 118 H
Calcium 8.8
Vital Signs:
Vital Signs
Temp Pulse Resp BP Pulse Ox
97.7 F 67 18 114/68 97
10/10/24 07:30 10/10/24 07:30 10/10/24 08:07 10/10/24 07:30 10/10/24 10:26
I&O
10/09/24 10/10/24 10/11/24
06:59 06:59 06:59
Intake Total 1440 / 1440
Balance 1440 / 1440
Review of Systems
-
Respiratory: Reports Cough and Trouble Breathing
Cardiac: Reports No Symptoms
Abdomen/GI: Reports No Symptoms
Physical Exam
-
General: No Apparent Distress and Comfortable
HEENT: Negative Oxygen
Respiratory: Wheezes and Rhonchi
Cardiac: Regular Rhythm and S1/S2; Negative Murmur or Rub
GI: Soft and Nontender
Musculoskeletal: No Edema
Neuro: Awake, Alert, Oriented, No Motor Deficits and Nonfocal/Grossly Intact
Psych: Calm
--- NOTE | 2024-10-10 14:00 | CM ---
Chart reviewed. Patient will d/c home today
No CM needs identified at this time
Plan: Home, no needs
[2024-10-10] MEDS: TORADOL 15 MG IV (14:17)
[2024-10-10 15:48] VITALS: BP 115/75
[2024-10-10] MEDS: IMITREX 50 MG PO (15:56)
--- NOTE | 2024-10-12 15:53 | W.DCSUMMARY ---
Discharge Summary
Discharge Data
Date of Admission: 10/08/24
Date of Discharge: 10/10/24
-
Pending Results: No
Hospital Course
Discharging Physician : Dr Juan M Vasques
Disposition : To home
Primary care physician : Dr Paulina Montelongo
Principal Discharge diagnosis :
Acute bronchitis
Possible undiagnosed chronic obstructive pulmonary disease flareup
Acute hypoxic respite insufficiency
Gallbladder dyskinesia
Chronic Discharge diagnosis :
Idiopathic thrombocytopenic purpura
Rnk-fsfqzuw-itwjdjust diabetes mellitus
Gastroesophageal reflux disease
Generalized anxiety disorder
Hospital Course :
Patient is a 48-year-old female with motion past medical history came to ER with new onset of cough and shortness of breath. Patient is an active smoker and noted herself wheezing. Apparently week back patient went to [facility] for right upper
quadrant abdominal pain and workup was apparently negative and was discharged home. Discharge patient started having new shortness of breath and came to ER for further evaluation. In ER on exam patient was noted to be wheezing. Chest x-ray was
relatively clear. As patient have a history of smoking patient was likely felt to having undiagnosed COPD and related flareup. Patient was started on IV steroids and inhaler were prescribed. Patient was evaluated by pulmonology who ordered a PFT
which showed some obstructive lung disease. Patient did show improvement in symptoms and possible exacerbation patient was discharged on a course of steroid and nebulizer therapy.
Patient was also had repeat episode of right upper quadrant abdominal pain for which patient had an ultrasound of abdomen which did not show any gallbladder abnormality. General surgery evaluated in light of clinical presentation and this was felt
to be related to gallbladder dyskinesia. General surgery evaluated patient to follow-up outpatient basis with an outpatient HIDA scan done.
Important imaging findings :
None
Procedure findings :
None
Discharge Plan
-
Patient Disposition: Home (Routine Discharge)
Discharge Diagnosis/Procedures: COPD flare up , GB dyskinesia
Condition: Fair
Diet: Regular
Activity: As tolerated
Driving Restrictions: As prior to admission
Bathing Restrictions: OK to Shower
Referrals:
Paulina Montelongo PA [Family Provider, Family Practice] - in one week
Titus Blair MD [Active, Pulmonary Medicine] - in one to two weeks
Referral Note: PFTs, possible sleep apnea workup, ongoing smoking cessation counseling
Prescriptions:
New
prednisone 10 mg Tablet
See Rx Instructions .ROUTE .COMPLEX Qty: 30 0RF
Rx Instructions:
Take By Mouth:
40 mg daily x3 days, 30 mg daily x3 days,
20 mg daily x3 days, 10 mg daily x3 days.
albuterol sulfate 90 mcg/actuation aerosol powdr breath activated
2 inh inhalation Q6H PRN (Reason: shortness of breath) Qty: 1 0RF
doxycycline hyclate 100 mg capsule
100 mg PO BID Qty: 8 0RF
Continued
pantoprazole [Protonix] 20 mg Tablet,Delayed Release (Dr/Ec)
20 mg PO DAILY
lorazepam 0.5 mg Tablet
0.5 mg PO BIDPRN PRN (Reason: anixety)
dicyclomine 10 mg Capsule
10 mg PO TIDPRN PRN (Reason: spasms)
clindamycin phosphate 1 % Lotion
1 applic TOPICAL DAILY
metformin 750 mg Tablet Extended Release 24 Hr
750 mg PO BID
rosuvastatin [Crestor] 20 mg Tablet
20 mg PO QPM
Nplate 125 mcg Recon Soln
125 mcg SC TU
Discharge Orders:
Discharge Patient (As Directed); Ordered 10/10/24
Ordered By: Juan M Vasques
Discharge Date and Time
Discharge Date/Time: 10/10/24 16:35
Print Language: ROMANSH
== END 2024-10-10 16:35 | disposition home or self-care (01) | DRG 191 ==
LOC: 4 EAST ACU 13:46
PROVIDERS: Emergency Medicine; ADMITTING PHYSICIAN Hospitalist; CONSULT PHYSICIAN Internal Medicine Critical Care Medicine; CONSULT PHYSICIAN Surgery; EMERGENCY PHYSICIAN Emergency Medicine; FAMILY PHYSICIAN Physician Assistant Medical
DX: J44.0 Chronic obstructive pulmonary disease with (acute) lower respiratory infection (principal); D69.3 Immune thrombocytopenic purpura; J44.1 Chronic obstructive pulmonary disease with (acute) exacerbation; R09.02 Hypoxemia; J20.9 Acute bronchitis, unspecified; R06.89 Other abnormalities of breathing; K76.0 Fatty (change of) liver, not elsewhere classified; K82.8 Other specified diseases of gallbladder; F41.1 Generalized anxiety disorder; E66.9 Obesity, unspecified; G47.33 Obstructive sleep apnea (adult) (pediatric); N80.9 Endometriosis, unspecified; K21.9 Gastro-esophageal reflux disease without esophagitis; E11.65 Type 2 diabetes mellitus with hyperglycemia; E78.5 Hyperlipidemia, unspecified; F17.210 Nicotine dependence, cigarettes, uncomplicated; Z88.1 Allergy status to other antibiotic agents; Z88.0 Allergy status to penicillin; Z88.8 Allergy status to other drugs, medicaments and biological substances; Z68.33 Body mass index [BMI] 33.0-33.9, adult; Z79.84 Long term (current) use of oral hypoglycemic drugs; Z79.60 Long term (current) use of unspecified immunomodulators and immunosuppressants
CPT/HCPCS: 71046; 76700; 80048; 80053; 82962; 83036; 84484; 84703; 85025; 85027; 87070; 87811; 87880; 93005; 94060; 94640; 96374; 99285; J2802

== ENCOUNTER → 2024-10-31 07:49 | Outpatient (REF) | payer OTHER, SELFPAY | LOC: RAD 07:49 | PROVIDERS: ATTENDING PHYSICIAN Surgery; FAMILY PHYSICIAN Nurse Practitioner Family | DX: R10.84 Generalized abdominal pain (principal) | CPT/HCPCS: 78227; A9537; J2805 ==

== ENCOUNTER → 2025-01-05 10:36 | Outpatient (REF) | payer OTHER, SELFPAY | LOC: WDC 10:36 | PROVIDERS: ATTENDING PHYSICIAN Student in an Organized Health Care Education/Training Program; FAMILY PHYSICIAN Nurse Practitioner Family | DX: Z12.31 Encounter for screening mammogram for malignant neoplasm of breast (principal) | CPT/HCPCS: 77063; 77067 ==